=== PATIENT | male | born 1935 | race Caucasian/White ===

== ENCOUNTER → 2016-06-26 | Outpatient (CLI) | payer OTHER ==
[~2016-06-26] MED LIST: ACETAMINOPHEN325 M1 PO; ALLEGRA180 MG PO; ALLEGRA30 MG; ALLOPURINOL 30300 M1 PO; AMITRIPTYLINE H25 M2 PO; ASPIRIN EC81 M1 PO; BENTYL10 MG; COUMADIN 2.5MG2.5 M1 PO; DIPHENOXYLATE W60 M1; DOXYCYCLINE 10100 M1 PO; FENOFIBRATE134 MG PO; GLUCOTROL XL2.5 MG PO; GLUMETZA500 PO; HYDROCODON-ACE1 EAC3 PO; HYDROCODON-ACE1 EAC5 PO; HYDROCODON-ACE1 EAC8 PO; LIPITOR 20 MG T20 M1 PO; LOMOTIL TABLET1 EACH PO; LOVAZA1000 MG PO; MULTIVITAMINS PO; ORPHENADRINE C100 M2 PO; PRINIVIL5 MG PO; PROPRANOLOL 1010 MG PO; SIMVASTATIN40 MG PO; TRILEPTAL150 MG PO
== END ==
LOC: MRI 02:36
DX: R41.82 Altered mental status, unspecified (principal); R55 Syncope and collapse